=== PATIENT | female | born 1985 | race Caucasian/White ===

== ENCOUNTER 2018-12-28 14:06 | Inpatient (IN) | payer BC ==
[~2018-12-28] VITALS: Ht 170.2 cm; Wt 87.0 kg
--- NOTE | 2019-01-03 13:31 | NUR ---
01/03/19 1331 Sheets,Ivet 1319 PT ARRIVED TO ROOM 104 AND FBC RN AT BEDSIDE. VSS. PT REPORTS SMALL AMOUNT OF SHEKHAR 2-3/10 AND TOLERBALE AT THIS TIME. BABY ON PT CHEST WITH AT BEDSIDE.
--- NOTE | 2019-01-04 08:11 | PR ---
[facility] [address] [place], [place] [address] Signed PP Progress Notes Datetime Report Generated by CPN: 01/04/2019 08:11 SUBJECTIVE: [id number] Pain: Within normal limits Nausea/Vomiting: Denies Flatus: Yes Vital Signs: [id number] Vital Signs: Reviewed EXAM: [id number] Cardiovascular: Normal Respiratory: Normal Abdomen/Uterus: Normal Lochia: Normal Vulva/Perineum: Not Done Breasts: Not Done CVA Tenderness: Normal Extremities: Normal Incision: Normal Progress: Normal Exam Comments: Fundus firm U-2 nontender. Incision healing well IMPRESSION/PLAN/PROCEDURES: [id number] Impression: Normal progression Plan: Continue present management Progress Notes: Pt seen and examined. Doing well. Ambulating, voiding, and tolerating full diet. Pain and lochia minimal. Breast feeding well. No fevers/chills/nausea/vomiting. Hgb 10.9. Anticipate d/c home tomorrow. Signing Physician: Haroldo Castle DO Copies: ~ *Electronically Signed* 01/04/19 0811 HAROLDO CASTLE DO PATIENT NAME: NAIMA MAKI PROGRESS NOTE DATE OF : 83 PHYSICIAN: HAROLDO CASTLE DO RPT #: [id number] REPORT IS CONFIDENTIAL AND NOT TO BE RELEASED WITHOUT AUTHORIZATION
--- NOTE | 2019-01-05 09:14 | PR ---
[facility] [address] [place], [place] [address] Signed PP Progress Notes Datetime Report Generated by CPN: 01/05/2019 09:14 SUBJECTIVE: [id number] Pain: Within normal limits Nausea/Vomiting: Denies Flatus: Yes Bowel Movement: No Vital Signs: [id number] Vital Signs: Reviewed EXAM: [id number] Cardiovascular: Normal Respiratory: Normal Abdomen/Uterus: Normal Lochia: Normal Vulva/Perineum: Not Done Breasts: Not Done CVA Tenderness: Normal Extremities: Normal Incision: Normal Progress: Normal Exam Comments: Fundus firm U-2 nontender. Incision well healing IMPRESSION/PLAN/PROCEDURES: [id number] Impression: Normal progression Plan: Discharge Progress Notes: Pt seen and examined. Doing well. Ambulating voiding and tolerating full diet. Pain and lochia minimal. well. Incision healing well. No fevers/chills/other concerns. Desires d/c home. Planning natural family planning for contraception. A Signing Physician: Haroldo Castle DO Copies: ~ *Electronically Signed* 01/05/19 0914 HAROLDO CASTLE DO PATIENT NAME: SHANTHI,NAIMA PROGRESS NOTE DATE OF : 83 PHYSICIAN: HAROLDO CASTLE DO RPT #: [id number] REPORT IS CONFIDENTIAL AND NOT TO BE RELEASED WITHOUT AUTHORIZATION
--- NOTE | 2019-02-24 09:15 | OR ---
[facility] [address] [place], [place] [address] Signed DATE OF OPERATION: 01/03/2019 SURGEON: Haroldo Castle DO PREOPERATIVE DIAGNOSES: 1. Intrauterine at 39 weeks gestation. 2. History of prior delivery. 3. Keloid scar. POSTOPERATIVE DIAGNOSES: 1. Intrauterine at 39 weeks gestation. 2. History of prior delivery. 3. Keloid scar. PROCEDURE PERFORMED: Repeat low transverse delivery. ANESTHESIA: Spinal. STRAP MACHINE OPERATOR: Wendy Jose MD ESTIMATED BLOOD LOSS: 600 mL. COMPLICATIONS: None. FINDINGS: Viable female born in the LOT position. Normal tubes and ovaries. Somewhat thin lower uterine segment noted at the time of hysterotomy. However, at time of hysterotomy repair the lower uterine segment seemed to be within normal limits. Keloid scar. INDICATIONS: Ms. Sy is a very pleasant 33-year-old G3, P2-0-0-2 white female, who presents for scheduled repeat low transverse delivery. complicated by prior x2 and keloid scar. The patient denies contractions, discharge, bleeding, loss of fluid, or other concerns. Risks, benefits, and alternatives were discussed in Electronically Signed By: HAROLDO CASTLE DO 02/24/19 0915 PATIENT NAME: NAIMA SY OPERATIVE REPORT DATE OF : 83 REPORT #: [id number] PHYSICIAN: HAROLDO CASTLE DO PCP: NO PRIMARY CARE PHYSICIAN REPORT IS CONFIDENTIAL AND NOT TO BE RELEASED WITHOUT AUTHORIZATION [facility] [address] [place], [place] [address] Signed detail with the patient. The patient understands and wished to proceed with the procedure. TECHNIQUE: The patient was taken to the operating room, where a time-out was performed to confirm correct patient, correct procedure. Spinal anesthesia was adequately established and the patient was prepped and draped in the supine position with a bump under the right hip. No heparin was indicated and Ancef 2 g preoperatively were given per SCIP protocol. Keloid scar was noted and this was excised in an elliptical manner after confirming adequate spinal anesthetic. The scar was wedged out without difficulty. Incision was carried down to the fascia. The fascia was nicked in the midline with a surgical scalpel. Fascial incision was extended bilaterally using curved Martin scissors. The fascia was grasped with Julieta's, elevated, and the underlying rectus muscle dissected off bluntly and sharply. The rectus was divided in midline and the peritoneum grasped with hemostats, elevated, and entered sharply. Peritoneal incision was extended bilaterally using blunt dissection. Normal appearing uterus with a somewhat thinned lower segment initially noted. No intraabdominal or pelvic adhesions noted. An Tito self retractor was placed and hysterotomy was then performed in the lower uterine segment. Amniotic sac was ruptured and noted for clear fluid. vertex was elevated into the abdomen easily in the LOT position and delivered with the assistance of fundal pressure. No nuchal cord was noted and the shoulders delivered easily. The remainder of the delivered spontaneously and the was vigorous and cried. Cord was doubly clamped and cut and the handed to the waiting pediatric team for further care. Cord blood was obtained for routine analysis and the placenta was expressed intact with a centrally inserted three-vessel cord. Bleeding was scant and the patient was treated with Pitocin per protocol. The uterine cavity was cleared of any remaining products of conception or clot and again bleeding noted to be light. Hysterotomy was then repaired using 0 Vicryl in a running locked manner. Initially, the lower uterine segment appeared somewhat thinned. However, at the time of repair the lower uterine segment appeared to be within normal limits and no apparent contraindication to future noted. A 2nd imbricating stitch of 0 Vicryl was applied in a vertical manner with good hemostasis and imbrication. Small amount of oozing was noted and this was made hemostatic with a qoyxzo-vm-vopiw of 0 Vicryl and some Roberto powder. The pelvis was irrigated and found to be hemostatic. Normal tubes and ovaries bilaterally. The Tito self retractor was removed and peritoneum was then reapproximated using 2-0 Vicryl in a running nonlocked manner after ACell sheet was applied to the lower uterine segment and hemostasis confirmed. The rectus was examined and made hemostatic with a combination of Bovie electrocautery and Roberto powder. Rectus was then loosely reapproximated using 0 Vicryl in a loose interrupted simple sutures. ACell and Roberto powder were applied to the rectus sheath and fascia was then reapproximated using 0 Vicryl in a running nonlocked manner. Subcu was reapproximated using 2-0 Vicryl in a running manner and skin was then reapproximated using 4-0 Quill in Electronically Signed By: HAROLDO CASTLE DO 02/24/19 0915 PATIENT NAME: NAIMA SY OPERATIVE REPORT DATE OF : 83 REPORT #: [id number] PHYSICIAN: HAROLDO CASTLE DO PCP: NO PRIMARY CARE PHYSICIAN REPORT IS CONFIDENTIAL AND NOT TO BE RELEASED WITHOUT AUTHORIZATION [address] [address] Signed a subcuticular stitch after ensuring hemostasis of the subcu. Cordran tape was then applied to the incision. The uterus was Crede'd for a small amount of blood and clot and the patient was taken to the PACU in good and stable condition. Sponge, needle, and instrument count was correct x2 at the end of the procedure. Dr. Jose was present and participated in all portions of the procedure. Haroldo Castle DO JDW/MODL /[id number] Copies: ~ Electronically Signed By: HAROLDO CASTLE DO 02/24/19 0915 PATIENT NAME: NAIMA SY OPERATIVE REPORT DATE OF : 83 REPORT #: [id number] PHYSICIAN: HAROLDO CASTLE DO PCP: NO PRIMARY CARE PHYSICIAN REPORT IS CONFIDENTIAL AND NOT TO BE RELEASED WITHOUT AUTHORIZATION
== END 2019-01-05 13:55 | disposition home or self-care (01) | DRG 788 ==
LOC: FBC 01-03 05:25 → EDUNIT# 01-03 06:45 → FBC 01-03 06:45
PROVIDERS: ADMIT Obstetrics & Gynecology
PROC: 10D00Z1 Extraction of Products of Conception, Low, Open Approach (ICD-10-PCS; principal; 2019-01-03 06:45)
DX: O34.211 Maternal care for low transverse scar from previous cesarean delivery (principal); N85.8 Other specified noninflammatory disorders of uterus; Z3A.39 39 weeks gestation of pregnancy; Z37.0 Single live birth; O32.2XX0 Maternal care for transverse and oblique lie, not applicable or unspecified; O69.82X0 Labor and delivery complicated by other cord entanglement, without compression, not applicable or unspecified
CPT/HCPCS: 01961; 36415; 85027; A9270; J0690; J1100; J1885; J2274; J2370; J2405; J2590; J3010; J7121

== ENCOUNTER 2020-10-25 10:02 | Inpatient (IN) | payer BC ==
[~2020-10-25] VITALS: Ht 170.2 cm; Wt 99.3 kg
--- NOTE | ~2020-10-25 | OR ---
[facility] [address] [facility] [place], [place] [address] Draft DATE OF OPERATION: 11/01/2020 SURGEON: Haroldo Castle DO PREOPERATIVE DIAGNOSES: 1. Intrauterine at 39 weeks gestation. 2. History of prior x3. POSTOPERATIVE DIAGNOSES: 1. Intrauterine at 39 weeks gestation. 2. History of prior x3. PROCEDURE PERFORMED: Repeat low transverse delivery. ANESTHESIA: Spinal. ALMOND SORTER: Claire Sherwood DO ESTIMATED BLOOD LOSS: 500 mL. COMPLICATIONS: None. FINDINGS: Delivery of viable male with Apgars of 9 and 9. Weight pending. Normal uterus with normal lower uterine segment with no significant abdominal or pelvic adhesions. Normal bilateral fallopian tubes and ovaries. Some dense scarring of the rectus fascia. INDICATIONS: Ms. Sy is a very pleasant 34-year-old, G4, P3-0-0-3 with intrauterine at 39 weeks 0 days gestation, presents to Labor and Delivery for repeat low transverse delivery. complicated only by prior and advanced maternal age. Risks, benefits, and alternatives were discussed in detail with the patient and the patient understands and wishes to proceed with procedure. TECHNIQUE: PATIENT NAME: NAIMA SY OPERATIVE REPORT DATE OF : 83 REPORT #: [id number] PHYSICIAN: HAROLDO CASTLE DO PCP: NO PRIMARY CARE PHYSICIAN REPORT IS CONFIDENTIAL AND NOT TO BE RELEASED WITHOUT AUTHORIZATION [facility] [address] [place], [place] [address] Draft The patient was taken to the operating room where a time-out was performed to confirm correct patient and correct procedure. Spinal anesthesia was adequately established. The patient was prepped and draped in the supine position with a bump under the right hip. Ancef 2 g were given preoperatively and no heparin was indicated. Luciano catheter was inserted. Spinal was found to be adequate and Pfannenstiel skin incision was made using a surgical scalpel through prior Pfannenstiel incision. Incision was carried down to the fascia and the fascia was nicked in the midline and extended bilaterally using curved Martin scissors. Fascia was grasped with Julieta's, elevated, and the underlying rectus dissected off bluntly and sharply. Quite dense scarring of the rectus to the fascia was appreciated. The rectus muscles were grasped, elevated, and divided in the midline using combination of blunt and sharp dissection. The peritoneum was entered sharply and no adhesions were palpated. Pfannenstiel incision was extended cephalad caudad using sharp and blunt dissection. Tito self retractor was placed and lower uterine segment identified. Hysterotomy was performed using a surgical scalpel and hysterotomy was extended bilaterally using blunt dissection. Amnion was ruptured and clear fluid noted. Nuchal cord x1 was noted and reduced after the head was delivered with the assistance of fundal pressure. The remainder of the delivered spontaneously. Cord was notable for a true knot. was vigorous and cried, then cord was doubly clamped and cut and the handed to the waiting pediatric team further care. Cord blood was obtained for routine analysis. The uterus was cleared of any remaining products of conception or clot and bleeding was scant. Pitocin was given per protocol. Hysterotomy was then repaired using 0 Monocryl in 2 layers. The 1st being a locked running suture and the 2nd being imbricating suture in a vertical fashion. Excellent hemostasis was appreciated. The pelvis was irrigated and again hemostasis was appreciated. The Tito self retractor was removed and ACell sheet was applied to the lower uterine segment. Peritoneum was then reapproximated using 2-0 Vicryl in a running nonlocked manner. The rectus was made hemostatic with judicious use of Bovie electrocautery and irrigation confirmed hemostasis. The rectus muscles were plicated loosely in the midline using interrupted suture of 0 Vicryl. ACell powder was applied to the rectus. Fascia was then reapproximated using 0 Vicryl in a running nonlocked manner. Subcu was irrigated and made hemostatic with Bovie electrocautery. Subcu was then reapproximated using 3-0 Vicryl in a running nonlocked manner. Skin was reapproximated using surgical jairo. Uterus was Crede'd for scant amount of bleeding and the patient was taken to PACU in good and stable condition. Sponge, needle, and instrument count was correct x2 at the end of the procedure. Dr. Sherwood present and participated in all portions of the procedure. Haroldo Castle DO PATIENT NAME: NAIMA SY OPERATIVE REPORT DATE OF : 83 REPORT #: [id number] PHYSICIAN: HAROLDO CASTLE DO PCP: NO PRIMARY CARE PHYSICIAN REPORT IS CONFIDENTIAL AND NOT TO BE RELEASED WITHOUT AUTHORIZATION [address] [address] Draft JLuisW/UMML /[id number] Copies: ~ PATIENT NAME: NAIMA SY OPERATIVE REPORT DATE OF : 83 REPORT #: [id number] PHYSICIAN: HAROLDO CASTLE DO PCP: NO PRIMARY CARE PHYSICIAN REPORT IS CONFIDENTIAL AND NOT TO BE RELEASED WITHOUT AUTHORIZATION
[2020-11-01] MEDS ORDERED: VITAFOL-OB+DHA1 EACH PO (06:03)
[2020-11-01] MEDS ORDERED: VITAMIN C1000 MG PO (06:03)
[2020-11-01] MEDS ORDERED: FISH OIL 1,0001 EAC3 PO (06:04)
--- NOTE | 2020-11-01 08:37 | NUR ---
11/01/20 0837 Sheets,Ivet 0820 PT ARRIVED TO ROOM AND PT REPORTS 07/02 "DISCOMFORT" TO ABD. VSS. SPINAL LEVEL 6-T, PT DENIES SOB. PT DENIES NAUSEA AND DIZZINESS. HOB INCREASED SLIGHTLY. IV INFUSING IN LEFT HAND AND SITE WNL. 0830 BABY TO CHEST WITH FBC RN AT BEDSIDE.
--- NOTE | 2020-11-02 07:53 | PR ---
[facility] [address] [facility] [place], [place] [address] Signed PP Progress Notes Datetime Report Generated by CPN: 11/02/2020 07:52 SUBJECTIVE: [id number] Pain: Within Normal Limits Nausea/Vomiting: Denies Flatus: Yes Bowel Movement: No Vital Signs: [id number] Vital Signs: Reviewed Cardiovascular: Normal Respiratory: Normal Abdomen/Uterus: Normal Lochia: Normal Vulva/Perineum: Not Done Breasts: Not Done CVA Tenderness: Normal Extremities: Normal Incision: Normal Progress: Normal Exam Comments: Fundus firm U-2 nontender IMPRESSION/PLAN/PROCEDURES: [id number] Impression: Normal Progression Plan: Continue Present Management Progress Notes: Pt seen and examined. Doing well. Ambulating and tolerating full diet. Gee cath in place draining clear yellow urine. No fevers/chills. well. No complaints. Remove gee today and continue routine pp care. Hgb 10.5 Signing Physician: Haroldo Castle DO Copies: ~ *Electronically Signed* 11/02/20 0752 HAROLDO CASTLE DO PATIENT NAME: SHANTHI,NAIMA EDDIE PROGRESS NOTE DATE OF : 83 PHYSICIAN: HAROLDO CASTLE DO RPT #: [id number] REPORT IS CONFIDENTIAL AND NOT TO BE RELEASED WITHOUT AUTHORIZATION
--- NOTE | 2020-11-03 08:06 | PR ---
[facility] [address] [facility] [place], [place] [address] Signed PP Progress Notes Datetime Report Generated by CPN: 11/03/2020 08:06 SUBJECTIVE: [id number] Pain: Within Normal Limits Nausea/Vomiting: Denies Flatus: Yes Bowel Movement: No Vital Signs: [id number] Vital Signs: Reviewed; Within Normal Limits EXAM: Ongoing Cardiovascular: Normal Respiratory: Normal Abdomen/Uterus: Normal Lochia: Normal Vulva/Perineum: Not Done Breasts: Not Done CVA Tenderness: Normal Extremities: Normal Incision: Normal Progress: Normal Exam Comments: Fundus firm U-2 nontender IMPRESSION/PLAN/PROCEDURES: [id number] Impression: Normal Progression Plan: Remove [place]; Discharge Progress Notes: Pt seen and examined. Doing well. Ambulating, voiding, and tolerating full diet. Pain and lochia minimal. well. No fevers/chills/other concerns. Desires d/c home today. Planning natural family planning for contraception. Reviewed d/c instructions in detail. Signing Physician: Haroldo Castle DO Copies: ~ *Electronically Signed* 11/03/20805 HAROLDO CASTLE DO PATIENT NAME: NAIMA MAKI PROGRESS NOTE DATE OF : 83 PHYSICIAN: HAROLDO CASTLE DO RPT #: [id number] REPORT IS CONFIDENTIAL AND NOT TO BE RELEASED WITHOUT AUTHORIZATION
== END 2020-11-03 11:25 | disposition home or self-care (01) | DRG 788 ==
LOC: FBC 11-01 05:01
PROVIDERS: ADMIT Obstetrics & Gynecology; ATTEND Obstetrics & Gynecology
PROC: 10D00Z1 Extraction of Products of Conception, Low, Open Approach (ICD-10-PCS; principal; 2020-11-01 06:45)
DX: O34.211 Maternal care for low transverse scar from previous cesarean delivery (principal); Z3A.39 39 weeks gestation of pregnancy; Z37.0 Single live birth; Z91.048 Other nonmedicinal substance allergy status
CPT/HCPCS: 01961; 85027; J0690; J1650; J1885; J2001; J2274; J2405; J2590; J3010; J7121

== ENCOUNTER 2022-11-06 13:44 | Inpatient (IN) | payer BC ==
[~2022-11-06 13:44] MED LIST: FISH OIL 1,0001 EAC3 PO; VITAFOL-OB+DHA1 EACH PO; VITAMIN C1000 MG PO
[2023-01-07 06:26] LABS: HEMATOCRIT 31.2 % (35.0-50.0); HEMOGLOBIN 10.1 g/dL (12.0-18.0); MCH 26.6 (27-36); MCHC 32.5 g/dl (30-36); MCV 81.9 fl (81-99); RBC 3.8 M/ul (4.3-5.7); RDW 14.3 (10.5-15.0)
[2023-01-07 06:31] VITALS: BP 119/70
[2023-01-07 06:43] LABS: INFLUENZA B NAA NEGATIVE (NEGATIVE); RESPIRATORY SYNCYTIAL VIR NAA NEGATIVE (NEGATIVE)
[2023-01-07 07:15] LABS: ABO O; ANTIBODY SCREEN NEGATIVE; RH POSITIVE
--- NOTE | 2023-01-07 09:09 | NUR ---
01/07/23 [facility]909 [facility] arrived via bed to PACU, awake and . LE 0908 pt breastfeding with no complaints, at bedside.
[2023-01-07 09:15] VITALS: BP 107/78
[2023-01-07 13:57] LABS: AMPHETAMINES, URINE NEGATIVE (NEGATIVE); BARBITURATES, URINE NEGATIVE (NEGATIVE); BENZODIAZEPINE, URINE NEGATIVE (NEGATIVE); BUPRENORPHINE, URINE NEGATIVE (NEGATIVE); CANNABINOID, URINE NEGATIVE (NEGATIVE); COCAINE, URINE NEGATIVE (NEGATIVE); ECSTASY, URINE NEGATIVE (NEGATIVE); FENTANYL, URINE NEGATIVE (NEGATIVE); METHADONE, URINE NEGATIVE (NEGATIVE); OPIATES, URINE NEGATIVE (NEGATIVE); OXYCODONE, URINE NEGATIVE (NEGATIVE); PHENCYCLIDINE, URINE NEGATIVE (NEGATIVE)
[2023-01-08 05:38] LABS: HEMATOCRIT 27.9 % (35.0-50.0); HEMOGLOBIN 9.2 g/dL (12.0-18.0); MCH 26.9 (27-36); MCHC 33.1 g/dl (30-36); MCV 81.1 fl (81-99); RBC 3.44 M/ul (4.3-5.7); RDW 13.6 (10.5-15.0)
--- NOTE | 2023-01-08 07:22 | PR ---
[facility] [address] [facility] [place], [place] [address] Signed PP Progress Notes Datetime Report Generated by CPN: 01/08/2023 07:22 SUBJECTIVE: [id number] Pain: Within Normal Limits Nausea/Vomiting: Denies Vital Signs: [id number] Vital Signs: Reviewed; Within Normal Limits Cardiovascular: Normal Respiratory: Normal Abdomen/Uterus: Normal Lochia: Normal CVA Tenderness: Normal Extremities: Normal Incision: Normal Progress: Normal Exam Comments: Fundus firm U-2 nontender. Incision healing well IMPRESSION/PLAN/PROCEDURES: [id number] Impression: Normal Progression Plan: Continue Present Management Progress Notes: Pt seen and examined. Doing well. Ambulating voiding, and tolerating full diet. Pain and lochia minimal. well. No fevers/chills/lightheadedness, or other concerns. Hgb 9.2 Signing Physician: Haroldo Castle DO Copies: ~ *Electronically Signed* 01/08/23 07 HAROLDO CASTLE (KELLEE) DO PATIENT NAME: NAIMA MAKI PROGRESS NOTE DATE OF : 83 PHYSICIAN: HAROLDO CASTLE (KELLEE) DO RPT #: [id number] REPORT IS CONFIDENTIAL AND NOT TO BE RELEASED WITHOUT AUTHORIZATION
--- NOTE | 2023-01-09 09:16 | PR ---
[facility] [address] [place], [place] [address] Signed PP Progress Notes Datetime Report Generated by CPN: 01/09/2023 09:16 SUBJECTIVE: [id number] Pain: Within Normal Limits Nausea/Vomiting: Denies Flatus: Yes Vital Signs: [id number] Vital Signs: Reviewed; Within Normal Limits Cardiovascular: Not Done Respiratory: Not Done Abdomen/Uterus: Normal Lochia: Normal Vulva/Perineum: Not Done Breasts: Not Done CVA Tenderness: Not Done Extremities: Normal Incision: Normal Progress: Normal Exam Comments: Fundus firm U-2 nontender. Incision healing well IMPRESSION/PLAN/PROCEDURES: [id number] Impression: Normal Progression Plan: Discharge Procedures: None Progress Notes: S: 37yo s/p RLTCS. POD #2. Doing well. Denies HAMM, CP, SOB, F/C, N/V, RUQ pain, changes in vision, vaginal discharge. Tolerating diet, ambulating, voiding on own, pain controlled. O: AFVSS Abd: Soft, non-distended, appropriately tender to palpation. Incision C/D/I. No erythema or drainage. [place] in place. Musc: BYRNES. A/P: Patient well. Meeting all hospital milestones. Will discharge home today. Signing Physician: Jerry Fernández MD *Electronically Signed* 01/09/23 0916 JERRY FERNÁNDEZ MD PATIENT NAME: NAIMA MAKI PROGRESS NOTE DATE OF : 83 PHYSICIAN: JERRY FERNÁNDEZ MD RPT #: [id number] REPORT IS CONFIDENTIAL AND NOT TO BE RELEASED WITHOUT AUTHORIZATION
--- NOTE | 2023-01-09 10:23 | NUR ---
MOTHER DENIED NEEDS. DECLINED PRAYER IN ROOM. OFFERED WELL-WISHES AND EXITED ROOM. PRAYED SILENTLY FOR GOOD BEGINNINGS.
== END 2023-01-09 12:35 | disposition home or self-care (01) | DRG 788 ==
LOC: FBC 01-07 05:27
PROVIDERS: ADMIT Obstetrics & Gynecology; ATTEND Obstetrics & Gynecology
PROC: 10D00Z1 Extraction of Products of Conception, Low, Open Approach (ICD-10-PCS; principal; 2023-01-07 07:30)
DX: O34.211 Maternal care for low transverse scar from previous cesarean delivery (principal); Z11.52 Encounter for screening for COVID-19; O69.1XX0 Labor and delivery complicated by cord around neck, with compression, not applicable or unspecified; Z3A.39 39 weeks gestation of pregnancy; Z37.0 Single live birth
CPT/HCPCS: 01961; 36415; 76942; 80307; 83735; 85027; 86850; 86900; 86901; 87502; A9270; J0690; J1100; J1650; J1885; J2001; J2274; J2371; J2405; J2590; J2795; J3010; J7121; U0002

== ENCOUNTER 2024-12-03 14:29 | Emergency (ER) | payer BC, OTHER ==
[~2024-12-03] VITALS: Ht 182.9 cm; Wt 70.4 kg
[2024-12-03] MEDS ORDERED: LORazepam 2 MG/ML VIAL IV ONE (15:00)
[2024-12-03] MEDS ORDERED: SODIUM CHLORIDE 0.9% 1,000 ML IV ONE (15:00)
[2024-12-03 15:14] LABS: BASOPHILS 0.3 % (0.1-1.2); EOSINOPHILS 0.4 % (0.7-5.8); LYMPHOCYTES 10.9 % (19.3-51.7); MCH 28.2 PG (25.6-32.2); MCHC 32.6 g/dL (32.2-35.5); MCV 86.6 fL (79.4-94.8); MONOCYTES 2.8 % (4.7-12.5); NEUTROPHILS 85.3 % (34.0-71.1); RBC 5.14 M/uL (3.93-5.22)
[2024-12-03 15:34] LABS: ALT (SGPT) 14.0 U/L (14-59); AST (SGOT) 12.0 U/L (15-37); GLOMERULAR FILTRATION RATE,EST 104.0 mL/min (>60); PROTEIN, TOTAL 7.7 g/dL (6.4-8.2); UREA NITROGEN 16.0 mg/dL (7-18)
[2024-12-03] MEDS ORDERED: ONDANSETRON ODT8 MG PO (16:53)
[2024-12-03] MEDS ORDERED: ATIVAN1 MG PO (16:53)
[2024-12-03] MEDS ORDERED: ONDANSETRON 4 MG HOME.PACK SL ONE (17:00)
[2024-12-03] MEDS ORDERED: LORazepam 1 MG HOME.PACK PO ONE (17:00)
[2024-12-03 17:12] VITALS: BP 115/71
== END 2024-12-03 17:14 | disposition home or self-care (01) ==
LOC: ED 14:29
PROVIDERS: Emergency Medicine
DX: H83.09 Labyrinthitis, unspecified ear (principal); Z91.018 Allergy to other foods
CPT/HCPCS: 36415; 80053; 85025; 96361; 96374; 96375; 99283-25; A9270; J2060; J2405; J7030